=== PATIENT | male | born 1985 | race Caucasian/White ===

== ENCOUNTER 2024-05-01 19:23 | Emergency (ER) | payer BC ==
[~2024-05-01] VITALS: Ht 185.4 cm; Wt 120.5 kg
[2024-05-01 19:28] VITALS: O2SAT 96
[2024-05-01 19:30] VITALS: BP 124/77; PULSE 101; RESP 16; TEMP 37.2; O2SAT 97
[2024-05-01 20:01] LABS: BASOPHILS % 0.9 % (0.0-2.0); EOSINOPHILS % 0.2 % (0.0-5.0); HEMATOCRIT. 42.4 % (42.0-52.0); HEMOGLOBIN. 14.8 g/dL (14.0-18.0); LYMPHOCYTES % 14.1 % (20.0-50.0); MEAN CORPUSCULAR HEMOGLOBIN 31.1 pg (28.0-32.0); MEAN CORPUSCULAR HGB CONC 34.9 g/dL (31.0-37.0); MEAN CORPUSCULAR VOLUME 89.1 fL (80.0-94.0); MEAN PLATELET VOLUME 7.4 fl (7.4-10.4); MONOCYTES % 4.9 % (2.0-8.0); NEUTROPHILS % 79.9 % (40.0-76.0); PLATELET 462 x1000/uL (130-400); RED BLOOD CELL COUNT 4.76 mill/uL (4.7-6.1); RED CELL DISTRIBUTION WIDTH 12.5 % (11.6-14.6); WHITE BLOOD COUNT 14.2 x1000/uL (4.5-11.0)
[2024-05-01 20:12] LABS: CHLORIDE 107 mEq/L (98-107); POTASSIUM 3.4 mEq/L (3.5-5.1); SODIUM 140 mEq/L (136-145)
[2024-05-01 20:13] LABS: CALCIUM 9.5 mg/dL (8.7-10.4); CARBON DIOXIDE 25 mEq/L (21-32)
[2024-05-01] MEDS ORDERED: HYDROCODONE/ACETAMINOPHEN 10/325MG TABLET PO ONE (20:15)
[2024-05-01] MEDS: ONDANSETRON 4MG ODT PO ONE (20:15)
[2024-05-01 20:18] LABS: CREATININE 0.8 mg/dL (0.6-1.3); GLUCOSE 117 mg/dL (70-105); UREA NITROGEN BLOOD 10 mg/dL (9-23)
[2024-05-01 20:20] LABS: ALANINE AMINOTRANSFERASE 23 IU/L (10-49); ALBUMIN 4.3 g/dL (3.2-4.8); ASPARTATE AMINOTRANSFERASE 19 IU/L (<34); BILIRUBIN DIRECT 0.3 mg/dL (<=3.0); BILIRUBIN TOTAL 1.1 mg/dL (0.1-1.0)
[2024-05-01 20:21] LABS: PROTEIN TOTAL 7.4 g/dL (6.0-8.3)
[2024-05-01] MEDS: HYDROCODONE/ACETAMINOPHEN 10/325MG TABLET PO NR (20:37)
[2024-05-01] MEDS: FAMOTIDINE 20MG TABLET PO ONE (20:37)
[2024-05-01] MEDS ORDERED: PROT40 MT (23:05)
== END 2024-05-01 23:11 | disposition home or self-care (01) ==
LOC: ER 19:23
DX: K29.70 Gastritis, unspecified, without bleeding (principal)
CPT/HCPCS: 80076; 80048; 80320; 83690; 85025; 36415; 74176; 99284; Q0162; G0480